=== PATIENT | male | born 1990 ===

== ENCOUNTER 2018-08-18 14:10 | Observation (INO) | payer MEDICAID ==
--- NOTE | 2018-08-18 15:15 | ED PDOC ---
Arrival/HPI - General Chief Complaint: GI Problem Time Seen by Provider: 08/18/18 14:12 Historian: Patient, Parent (Mother provided most of the information) - History of Present Illness Narrative History of Present Illness (Text): 08/18/18 14:40 28 M with no significant PMHx presents with cc of vomiting and abdominal pain after drinking alcohol yesterday (6-7 drinks). Pt reports he has vomited about 6 times since 08:00 this morning, with the same dark brown color each time. Patient's mother reports patient had a few drinks last night, although a doctor has previously told him that he is allergic to alcohol. Patient states the vomiting started before the abdominal pain. Patient notes dizziness and dark stool since this morning, with normal consistency. Patient is holding a bucket of vomit, appears to be coffee ground emesis. Pt denies diarrhea or any other complaints. Time/Duration: 4-6 hours (Patient reports vomiting 6 times and abdominal pain since 08:00 this morning ) Symptom Onset: Sudden Symptom Course: Unchanged Activities at Onset: Light Past Medical History - Psychiatric Hx Substance Use: No - Anesthesia Hx Anesthesia: No Hx Anesthesia Reactions: No Hx Malignant Hyperthermia: No Family/Social History Family/Social History: No Known Family HX Smoking Status: Never Smoked Hx Alcohol Use: Yes Frequency of alcohol use: Socially Hx Substance Use: No Allergies/Home Meds Allergies/Adverse Reactions: Allergies No Known Allergies Allergy (Verified 08/18/18 14:38) Review of Systems - Physician Review All systems were reviewed & negative as marked: Yes (All other systems negative except that noted in the HPI.) Physical Exam - Physical Exam Narrative Physical Exam (Text): Gen: VS reviewed, alert, well developed, well nourished, nontoxic, mild distress Eye: EOMI, PERRL Neck: no JVD, supple, no adenopathy CV: regular rate, regular rhythm, no rubs,no murmur, S1, S2 Pulm: no distress, clear to auscultation, no wheeze, no rhonchi, breath sounds equal, no rales Abd: soft, nontender, no guarding, no rebound, no rigidity Ext: no edema Skin: good color, no rash, no cyanosis Psych: responds appropriately to questions, normal affect Neuro: oriented x3, CN2-12 intact grossly, motor intact, sensation intact Medical Decision Making ED Course and Treatment: 08/18/18 14:40 Impression: 28 presents with cc of vomiting and abdominal pain after drinking alcohol yesterday (6-7 drinks). Differential Diagnosis included but are not limited to: Plan: -- Labs -- CBC (with differential) -- X-Ray of chest -- Protonix 40mg in 100 ml IVPB 20 mls/hr -- Protonix Inj 80mg IVP -- IV fluids -- Zofran Inj 4mg IVP -- Reassess and disposition Progress Notes: 08/18/18 16:16 hemoccult faintly positive with positive control: [id number] 08/18/18 16:39 admit refused by dental practitioner dr. louise 08/18/18 16:[address] brantley to hospitalist service. patient to be admitted for coffee ground emesis. hemoccult was noted to be weakly positive. recommend GI consult. - RAD Interpretation Narrative RAD Interpretations (Text): X-Ray of chest reviewed by radiologist, shows: Dictator : Jodee Costello MD Report Date : 08/18/2018 16:39:25 FINDINGS: LUNGS: No focal consolidation. Please note that chest x-ray has limited sensitivity for the detection of pulmonary masses. PLEURA: No significant pleural effusion identified. No definite pneumothorax . CARDIOVASCULAR: Heart size appears within normal limits. No significant atherosclerotic calcification present. OSSEOUS STRUCTURES: No acute osseous abnormality identified. VISUALIZED UPPER ABDOMEN: Elevation of the right hemidiaphragm. OTHER FINDINGS: None. IMPRESSION: No focal consolidation, significant pleural effusion, or definite pneumothorax identified. Radiology Orders: 08/18/18 14:50 CHEST PORTABLE [RAD] Stat Aluminizer: Radiologist - Medication Orders Current Medication Orders: Pantoprazole Sodium (Protonix 40mg Ivpb) 40 mg in 100 mls @ 20 mls/hr IVPB .Q5H MARISOL Sodium Chloride (Sodium Chloride 0.9%) 1,000 mls @ 100 mls/hr IV .Q10H MARISOL Discontinued Medications Ondansetron HCl (Zofran Inj) 4 mg IVP STAT STA Stop: 08/18/18 14:51 Pantoprazole Sodium (Protonix Inj) 80 mg IVP STAT STA Stop: 08/18/18 14:52 - Scribe Statement The provider has reviewed the documentation as recorded by the Scribe Vandana Sampsonjh All medical record entries made by the Shila were at my direction and personally dictated by me. I have reviewed the chart and agree that the record accurately reflects my personal performance of the history, physical exam, medical decision making, and the department course for this patient. I have also personally directed, reviewed, and agree with the discharge instructions and disposition. Disposition/Present on Arrival - Present on Arrival Any Indicators Present on Arrival: No History of DVT/PE: No History of Uncontrolled Diabetes: No Urinary Catheter: No History of Decub. Ulcer: No History Surgical Site Infection Following: None - Disposition Have Diagnosis and Disposition been Completed?: Yes Diagnosis: Gastritis Disposition: HOSPITALIZED Disposition Time: 16:45 Patient Plan: Admission Patient Problems: Current Active Problems Problem Status Onset Gastritis Acute Condition: STABLE
[2018-08-18] MEDS: Sodium Chloride 0.9% 1,000 ML IV SCH (15:20)
[2018-08-18] MEDS: Pantoprazole 40mg/100mL NS 40 MG/100 ML BAG IVPB SCH ×2 (15:21→20:50)
[2018-08-18 15:47] LABS: BLOOD UREA NITROGEN 12 mg/dL (7-21); CALCIUM 9.2 mg/dL (8.4-10.5); GFR NON-AFRICAN AMERICAN > 60; LIPASE 47 U/L (23-300)
[2018-08-18 15:55] LABS: ALB/GLOB RATIO 1.4 (1.1-1.8); ALBUMIN 5.2 g/dL (3.0-4.8); ALT/SGPT 65 U/L (7-56); AST/SGOT 50 U/L (17-59)
[2018-08-18 16:12] LABS: HEMOGLOBIN 16.8 g/dL (14.0-18.0); MEAN CELL VOLUME 88.8 fl (80.0-105.0); MEAN CORPUSCULAR HEMOGLOBIN 30.4 pg (25.0-35.0); MEAN CORPUSCULAR HGB CONC 34.3 g/dl (31.0-37.0); MEAN PLATELET VOLUME 9.7 fl (7.0-11.0); RBC 5.52 10^6/uL (3.5-6.1); RED CELL DISTRIBUTION WIDTH 13.1 % (11.5-14.5); WHITE BLOOD COUNT 12.8 10^3/uL (4.5-11.0)
--- NOTE | 2018-08-18 16:42 | RAD ---
HISTORY: free air, upright film COMPARISON: No prior. TECHNIQUE: Chest, one view. FINDINGS: LUNGS: No focal consolidation. Please note that chest x-ray has limited sensitivity for the detection of pulmonary masses. PLEURA: No significant pleural effusion identified. No definite pneumothorax . CARDIOVASCULAR: Heart size appears within normal limits. No significant atherosclerotic calcification present. OSSEOUS STRUCTURES: No acute osseous abnormality identified. VISUALIZED UPPER ABDOMEN: Elevation of the right hemidiaphragm. OTHER FINDINGS: None. IMPRESSION: No focal consolidation, significant pleural effusion, or definite pneumothorax identified.
--- NOTE | 2018-08-18 17:27 | CP.PCM.HP ---
<Carlos Alberto Ritchie - Last Filed: 08/18/18 18:43> History of Present Illness - History of Present Illness History of Present Illness: PGY-1 H&P for Dr. Boyd Patient is a 28 year old M with no significant past medical history presenting to the ED for vomiting and generalized abdominal pain after drinking Jimenez sandovaley last night. As per patient, he had ~6 shots of Jimenez Cornelius yesterday evening around 8-9pm and woke up this morning at 5AM feeling nauseous and vomiting. He endorses 6 total episodes of vomiting since this morning with 2 episodes of "dark brown" vomiting. Patient's mother at bedside states this has happened 2 other instances in the past, all of which occur after drinking. He has gone to Urgent Care in the past but came to the ED this time for insurance reasons. No fevers/chills, headaches, dizziness, changes in vision, chest pain, palpitations, sob, cough, diarrhea/constipation, dysuria, hx of bleeding or easy bruising. Of note, in the ED, hemoccult was "faintly positive with positive control". PMHx: denies PSHx: denies Allergies: NKDA Home Medications: multivitamin Social Hx: states he drinks socially, 1-2x/week, denies drinking daily. Denies tobacco or illicit drug use FHx: HTN (mom, dad) Present on Admission - Present on Admission Any Indicators Present on Admission: No Past Patient History - Past Social History Smoking Status: Never Smoked - PSYCHIATRIC Hx Substance Use: No - SURGICAL HISTORY Hx Surgeries: No - ANESTHESIA Hx Anesthesia: No Hx Anesthesia Reactions: No Hx Malignant Hyperthermia: No Meds Allergies/Adverse Reactions: Allergies Allergy/AdvReac Type Severity Reaction Status Date / Time No Known Allergies Allergy Verified 08/18/18 14:38 Physical Exam - Constitutional Appears: Non-toxic, No Acute Distress - Head Exam Head Exam: ATRAUMATIC, NORMAL INSPECTION, NORMOCEPHALIC - Eye Exam Eye Exam: EOMI, Normal appearance Pupil Exam: NORMAL ACCOMODATION, PERRL - ENT Exam ENT Exam: Mucous Membranes Moist, Normal Exam - Neck Exam Neck exam: Positive for: Full Rom, Normal Inspection - Respiratory Exam Respiratory Exam: Clear to Auscultation Bilateral, NORMAL BREATHING PATTERN. absent: Accessory Muscle Use, Rales, Rhonchi, Wheezes, Respiratory Distress, Stridor - Cardiovascular Exam Cardiovascular Exam: REGULAR RHYTHM, +S1, +S2 - GI/Abdominal Exam GI & Abdominal Exam: Normal Bowel Sounds, Soft. absent: Distended, Firm, Guarding, Hernia, Rebound, Rigid, Tenderness - Extremities Exam Extremities exam: Positive for: full ROM, normal capillary refill, normal inspection, pedal pulses present. Negative for: calf tenderness, joint swelling, pedal edema - Back Exam Back exam: NORMAL INSPECTION - Neurological Exam Neurological exam: Alert, CN II-XII Intact, Oriented x3 - Psychiatric Exam Psychiatric exam: Normal Affect, Normal Mood - Skin Skin Exam: Dry, Intact, Normal Color, Warm Results - Vital Signs Recent Vital Signs: Last Vital Signs Temp Pulse Resp BP Pulse Ox 98 08/18/18 14:50 - Labs Result Diagrams: 08/18/18 15:05 08/18/18 15:05 Labs: Laboratory Results - last 24 hr 08/18/18 08/18/18 08/18/18 15:05 15:05 15:05 WBC 12.8 H RBC 5.52 Hgb 16.8 Hct 49.0 MCV 88.8 MCH 30.4 MCHC 34.3 RDW 13.1 Plt Count 323 MPV 9.7 Sodium 145 Potassium 4.4 Chloride 105 Carbon Dioxide 27 Anion Gap 17 BUN 12 Creatinine 0.7 L Est GFR ( Amer) > 60 Est GFR (Non-Af Amer) > 60 Random Glucose 130 H Calcium 9.2 Total Bilirubin 1.3 AST 50 ALT 65 H Alkaline Phosphatase 57 Total Protein 8.9 H Albumin 5.2 H Globulin 3.7 Albumin/Globulin Ratio 1.4 Lipase 47 Alcohol, Quantitative < 10 Blood Type Confirm BBK History Checked 08/18/18 08/18/18 15:45 16:05 WBC RBC Hgb Hct MCV MCH MCHC RDW Plt Count MPV Sodium Potassium Chloride Carbon Dioxide Anion Gap BUN Creatinine Est GFR ( Amer) Est GFR (Non-Af Amer) Random Glucose Calcium Total Bilirubin AST ALT Alkaline Phosphatase Total Protein Albumin Globulin Albumin/Globulin Ratio Lipase Alcohol, Quantitative Blood Type Confirm A POSITIVE BBK History Checked No verified bt Assessment & Plan - Assessment and Plan (Free Text) Assessment: 28 yo M with no PMHx presenting with multiple episodes of dark brown vomiting, generalized abdominal pain s/p alcohol abuse Plan: ?Coffee ground emesis, generalized abdominal pain -Vomiting appears more dark brown than coffee ground, likely 2/2 alcohol -H/H stable: 16.8/49, continue to monitor -alcohol serum negative -in the ED, hemoccult was "faintly positive with positive control" -GI consult on board -clear liquid diet -protonix -zofran -IVF Hx binge drinking -multiple episodes of similar symptoms s/p binge drinking -pt denies daily alcohol abuse -alcohol serum negative -alcohol cessation counseling PPx, Diet, Disposition -GI: protonix -Diet: clear liquid Case discussed with Dr. Oliver Ritchie DO, PGY-1 <Mayelin Boyd R - Last Filed: 08/19/18 15:05> Results - Vital Signs Recent Vital Signs: Last Vital Signs Temp 97.7 F 08/19/18 08:20 Pulse 56 L 08/19/18 10:00 Resp 20 08/19/18 08:20 BP 113/64 08/19/18 08:20 Pulse Ox 96 08/19/18 08:20 - Labs Result Diagrams: 08/19/18 12:30 08/19/18 05:30 Labs: Laboratory Results - last 24 hr 08/18/18 08/18/18 08/18/18 15:05 15:05 15:05 WBC 12.8 H RBC 5.52 Hgb 16.8 Hct 49.0 MCV 88.8 MCH 30.4 MCHC 34.3 RDW 13.1 Plt Count 323 MPV 9.7 Gran % Lymph % (Auto) [place] % (Auto) Eos % (Auto) Baso % (Auto) Gran # Lymph # (Auto) [place] # (Auto) Eos # (Auto) Baso # (Auto) Sodium 145 Potassium 4.4 Chloride 105 Carbon Dioxide 27 Anion Gap 17 BUN 12 Creatinine 0.7 L Est GFR ( Amer) > 60 Est GFR (Non-Af Amer) > 60 Random Glucose 130 H Calcium 9.2 Phosphorus 4.2 Magnesium 2.0 Total Bilirubin 1.3 AST 50 ALT 65 H Alkaline Phosphatase 57 Total Protein 8.9 H Albumin 5.2 H Globulin 3.7 Albumin/Globulin Ratio 1.4 Lipase 47 Urine Opiates Screen Urine Methadone Screen Ur Barbiturates Screen Ur Phencyclidine Scrn Ur Amphetamines Screen U Benzodiazepines Scrn U Oth Cocaine Metabols U Cannabinoids Screen Alcohol, Quantitative < 10 Blood Type Blood Type Confirm Antibody Screen BBK History Checked 08/18/18 08/18/18 08/18/18 15:45 16:05 18:00 WBC RBC Hgb Hct MCV MCH MCHC RDW Plt Count MPV Gran % Lymph % (Auto) [place] % (Auto) Eos % (Auto) Baso % (Auto) Gran # Lymph # (Auto) [place] # (Auto) Eos # (Auto) Baso # (Auto) Sodium Potassium Chloride Carbon Dioxide Anion Gap BUN Creatinine Est GFR ( Amer) Est GFR (Non-Af Amer) Random Glucose Calcium Phosphorus Magnesium Total Bilirubin AST ALT Alkaline Phosphatase Total Protein Albumin Globulin Albumin/Globulin Ratio Lipase Urine Opiates Screen Negative Urine Methadone Screen Negative Ur Barbiturates Screen Negative Ur Phencyclidine Scrn Negative Ur Amphetamines Screen Negative U Benzodiazepines Scrn Negative U Oth Cocaine Metabols Negative U Cannabinoids Screen Negative Alcohol, Quantitative Blood Type A POSITIVE Blood Type Confirm A POSITIVE Antibody Screen Negative BBK History Checked No verified bt 08/19/18 08/19/18 08/19/18 05:30 05:30 12:30 WBC 11.4 H 8.6 D RBC 4.56 4.51 Hgb 13.4 L D 13.2 L Hct 41.3 L 40.8 L MCV 90.6 90.5 MCH 29.4 29.3 MCHC 32.4 32.4 RDW 13.7 13.6 Plt Count 285 271 MPV 9.5 9.2 Gran % 62.5 61.1 Lymph % (Auto) 25.5 28.9 [place] % (Auto) 10.9 H 8.4 H Eos % (Auto) 0.5 L 0.7 L Baso % (Auto) 0.6 0.9 Gran # 7.14 H 5.27 Lymph # (Auto) 2.9 2.5 [place] # (Auto) 1.3 H 0.7 H Eos # (Auto) 0.1 0.1 Baso # (Auto) 0.07 0.08 Sodium 144 Potassium 3.8 Chloride 109 H Carbon Dioxide 29 Anion Gap 10 BUN 15 Creatinine 1.0 Est GFR ( Amer) > 60 Est GFR (Non-Af Amer) > 60 Random Glucose 96 Calcium 8.3 L Phosphorus Magnesium Total Bilirubin 1.9 H AST 26 ALT 51 Alkaline Phosphatase 46 Total Protein 6.4 Albumin 3.7 Globulin 2.7 Albumin/Globulin Ratio 1.4 Lipase Urine Opiates Screen Urine Methadone Screen Ur Barbiturates Screen Ur Phencyclidine Scrn Ur Amphetamines Screen U Benzodiazepines Scrn U Oth Cocaine Metabols U Cannabinoids Screen Alcohol, Quantitative Blood Type Blood Type Confirm Antibody Screen BBK History Checked Attending/Attestation - Attestation I have personally seen and examined this patient.: Yes I have fully participated in the care of the patient.: Yes I have reviewed all pertinent clinical information: Yes Notes (Text): Patient seen and examined by me with resident at 4:45PM on 08/18/18. Case including HPI, physical exam, and assessment and plan discussed with resident. Agree with above with following additions/corrections. Patient is a 28 year old male with no significant past medical history that presented to the emergency room with nausea and vomiting. Patient states that he he had rotisserie chicken last night. He also had 6 shots of jimenez chano's liquor. He states he went to sleep and woke at 5AM with nausea and vomiting. He states he threw up approximately six times. He states that for the most part, his vomitus was clear. However, he had two episodes of dark brown emesis that looked like coffee ground emesis. Patient states he is only having abdominal pain when area is pushed on. Pain is in epigastric regions and feels like a "pressure." Patient denies any diarrhea or constipation. Denies any blood in his stool. Patient states that he did have some dizziness when he was throwing up. Patient states that nausea has now resolved. No chest pain or shortness of breath. No fevers or chills. No headaches or lightheadedness. No neck pain or back pain. No dysuria. Patient does not bleed or bruise easily. 12 point review of systems reviewed by me. Please see above HPI, all other systems negative. Past medical history: Reviewed and patient denies any history. Past surgical history: Reviewed and patient denies any history. Allergies: No known drug allergies. Medications at home: [id number] multivitamin Social history: Patient drinks approximately 2 times a week. He drinks 4-6 shots of liquor. Denies any tobacco use or illicit drug use. Family history: Mother is alive and has hypertension. Father is alive and has hypertension and lumbago Physical exam: General: Awake and alert lying in bed in no acute distress. HEENT: Normocephalic, atraumatic. Extraocular muscles intact, pupils equal and reactive, no scleral icterus. Oropharynx is pink and moist. Neck is supple. Cardiovascular: Normal rhythm. Normal S1 and S2. No murmurs, rubs, or gallops appreciated Pulmonary: Normal respiratory effort. No rhonchi, rales, or wheezing appreciated. Gastrointestinal: Soft, nondistended. Mild epigastric tenderness with deep palpation. Positive bowel sounds all 4 quadrants. No guarding. Musculoskeletal: Moves all extremities. No calf tenderness. No edema appreciated . Central nervous system: AAOx3, CN 2-12 grossly intact. 5/5 muscle strength all extremities. Dermatologic: Skin warm and dry. Assessment and plan: Patient is a 28 year old male with no significant past medical history that presented to the emergency room with nausea and vomiting. 1. Coffee-ground emesis. Per ED Hemoccult was positive. Likely secondary to alcohol abuse. Coffee-ground emesis resolved. H&H is within normal limits. Continue to monitor CBC. GI consulted, follow-up recommendations. Placed on IV fluids and clear liquid diet. Patient counseled at length on alcohol cessation. Continue protonix. 2. Alcohol abuse. Patient binge drinks. ETOH level <10. Denies any withdrawal symptoms in past. Patient counseled at length on cessation. 3. Epigastric pain. Likely secondary to vomiting and binge drinking. Improved. GI consulted, follow up recommendations. Continue protonix. Case was discussed in detail with the patient and patient's mother at bedside with patient's permission regarding current diagnosis and treatment plan. All questions answered.
[2018-08-18 20:35] VITALS: RESP 20
[2018-08-18 20:37] VITALS: BMI 18.6
[2018-08-18 21:54] LABS: BARBITURATES, UR NEGATIVE (NEGATIVE); BENZODIAZEPINES, UR NEGATIVE (NEGATIVE); OPIATES, UR NEGATIVE (NEGATIVE); PHENCYCLIDINE, UR NEGATIVE (NEGATIVE)
[2018-08-19] MEDS: Sodium Chloride 0.9% 1,000 ML IV SCH ×2 (01:00→10:58)
[2018-08-19] MEDS: Pantoprazole 40mg/100mL NS 40 MG/100 ML BAG IVPB SCH (01:42)
[2018-08-19 07:12] LABS: BASO # 0.07 K/mm3 (0.0-2.0); BASO % 0.6 % (0.0-3.0); EOS # 0.1 (0.0-0.7); EOS % 0.5 % (1.5-5.0); GRAN # 7.14 (1.4-6.5); GRAN % 62.5 % (50.0-68.0); LYMPH # 2.9 (1.2-3.4); LYMPH % 25.5 % (22.0-35.0); MEAN CELL VOLUME 90.6 fl (80.0-105.0); MEAN CORPUSCULAR HEMOGLOBIN 29.4 pg (25.0-35.0); MEAN CORPUSCULAR HGB CONC 32.4 g/dl (31.0-37.0); MEAN PLATELET VOLUME 9.5 fl (7.0-11.0); MONO # 1.3 (0.1-0.6); MONO % 10.9 % (1.0-6.0); RBC 4.56 10^6/uL (3.5-6.1); RED CELL DISTRIBUTION WIDTH 13.7 % (11.5-14.5); WHITE BLOOD COUNT 11.4 10^3/uL (4.5-11.0)
[2018-08-19 07:15] LABS: HEMOGLOBIN 13.4 g/dL (14.0-18.0)
[2018-08-19 07:28] LABS: ALB/GLOB RATIO 1.4 (1.1-1.8); ALBUMIN 3.7 g/dL (3.0-4.8); ALT/SGPT 51 U/L (7-56); AST/SGOT 26 U/L (17-59); BLOOD UREA NITROGEN 15 mg/dL (7-21); CALCIUM 8.3 mg/dL (8.4-10.5); GFR NON-AFRICAN AMERICAN > 60
[2018-08-19 08:21] VITALS: BP 113/64; TEMP 97.7; O2SAT 96
--- NOTE | 2018-08-19 10:50 | CARD ---
APPROVED REPORT Date of service: 08/18/2018 EKG Measurement Heart [id number] <Conclusion> Normal sinus rhythm Normal Electrocardiogram
[2018-08-19 13:18] LABS: BASO # 0.08 K/mm3 (0.0-2.0); BASO % 0.9 % (0.0-3.0); EOS # 0.1 (0.0-0.7); EOS % 0.7 % (1.5-5.0); GRAN # 5.27 (1.4-6.5); GRAN % 61.1 % (50.0-68.0); HEMOGLOBIN 13.2 g/dL (14.0-18.0); LYMPH # 2.5 (1.2-3.4); LYMPH % 28.9 % (22.0-35.0); MEAN CELL VOLUME 90.5 fl (80.0-105.0); MEAN CORPUSCULAR HEMOGLOBIN 29.3 pg (25.0-35.0); MEAN CORPUSCULAR HGB CONC 32.4 g/dl (31.0-37.0); MEAN PLATELET VOLUME 9.2 fl (7.0-11.0); MONO # 0.7 (0.1-0.6); MONO % 8.4 % (1.0-6.0); RBC 4.51 10^6/uL (3.5-6.1); RED CELL DISTRIBUTION WIDTH 13.6 % (11.5-14.5); WHITE BLOOD COUNT 8.6 10^3/uL (4.5-11.0)
--- NOTE | 2018-08-19 13:36 | CON ---
DATE: 08/19/2018 GASTROENTEROLOGY CONSULTATION REQUESTING PROVIDER: Dr. Boyd. REASON FOR CONSULTATION: I have been asked to see this 28-year-old male, who went on an alcoholic binge two nights ago drinking six shots of Jimenez Neris and the following morning developed nausea and vomiting as well as two episodes of coffee-ground emesis. He had a similar episode approximately 1 month ago after a night of binge drinking. He currently denies any abdominal pain, nausea, vomiting, hematemesis, or melena. His CBC has remained stable. Again, he currently denies any abdominal pain, nausea, vomiting or melena. PAST MEDICAL HISTORY: Unremarkable. SOCIAL HISTORY: He consumes alcohol on a regular basis. He occasionally has binge drinking on weekends. He denies cigarette smoking. FAMILY HISTORY: Notable for hypertension. REVIEW OF SYSTEMS: Fourteen-point review of systems is notable for nausea, vomiting, and coffee-ground emesis. HOME MEDICATIONS: None. PHYSICAL EXAMINATION: GENERAL: Young male, lying in bed, in no acute distress. VITAL SIGNS: Revealed a temperature of 97.7, blood pressure 113/64, heart rate of 72. HEENT: Revealed sclerae to be white. Conjunctivae pink. NECK: Supple. CHEST: Revealed lungs to be clear. CARDIOVASCULAR: Heart exam reveals regular rate and rhythm. ABDOMEN: Soft, nontender. No mass. EXTREMITIES: Show no edema. LABORATORY DATA: Revealed a white blood cell count of 11.4, hemoglobin 13.4. Chemistries reveal normal electrolytes this morning. Chloride is 109. IMPRESSION: Probable veisalgia secondary to alcohol binge. The patient may also have alcohol-induced gastritis with coffee-ground emesis. His symptoms have resolved. RECOMMENDATIONS: 1. Advance diet to regular diet. 2. The patient has been instructed to avoid binge drinking and then that these episodes of nausea and vomiting after drinking will recur. No GI workup planned at this time. Artem Lu MD
--- NOTE | 2018-08-19 14:22 | CP.PCM.DIS ---
Provider - Provider Date of Admission: 08/18/18 17:59 Attending physician: Mayelin Boyd DO Consults: DAFNE Lu Time Spent in preparation of Discharge (in minutes): 35 Diagnosis - Discharge Diagnosis (1) ETOH abuse Status: Acute Hospital Course - Lab Results Lab Results: Most Recent Lab Values WBC 8.6 10^3/uL (4.5-11.0) D 08/19/18 12:30 RBC 4.51 10^6/uL (3.5-6.1) 08/19/18 12:30 Hgb 13.2 g/dL (14.0-18.0) L 08/19/18 12:30 Hct 40.8 % (42.0-52.0) L 08/19/18 12:30 MCV 90.5 fl (80.0-105.0) 08/19/18 12:30 MCH 29.3 pg (25.0-35.0) 08/19/18 12:30 MCHC 32.4 g/dl (31.0-37.0) 08/19/18 12:30 RDW 13.6 % (11.5-14.5) 08/19/18 12:30 Plt Count 271 10^3/uL (120.0-450.0) 08/19/18 12:30 MPV 9.2 fl (7.0-11.0) 08/19/18 12:30 Gran % 61.1 % (50.0-68.0) 08/19/18 12:30 Lymph % (Auto) 28.9 % (22.0-35.0) 08/19/18 12:30 Foster % (Auto) 8.4 % (1.0-6.0) H 08/19/18 12:30 Eos % (Auto) 0.7 % (1.5-5.0) L 08/19/18 12:30 Baso % (Auto) 0.9 % (0.0-3.0) 08/19/18 12:30 Gran # 5.27 (1.4-6.5) 08/19/18 12:30 Lymph # (Auto) 2.5 (1.2-3.4) 08/19/18 12:30 Foster # (Auto) 0.7 (0.1-0.6) H 08/19/18 12:30 Eos # (Auto) 0.1 (0.0-0.7) 08/19/18 12:30 Baso # (Auto) 0.08 K/mm3 (0.0-2.0) 08/19/18 12:30 Sodium 144 mmol/L (132-148) 08/19/18 05:30 Potassium 3.8 mmol/L (3.6-5.0) 08/19/18 05:30 Chloride 109 mmol/L (98-107) H 08/19/18 05:30 Carbon Dioxide 29 mmol/L (21-33) 08/19/18 05:30 Anion Gap 10 (10-20) 08/19/18 05:30 BUN 15 mg/dL (7-21) 08/19/18 05:30 Creatinine 1.0 mg/dl (0.8-1.5) 08/19/18 05:30 Est GFR ( Amer) > 60 08/19/18 05:30 Est GFR (Non-Af Amer) > 60 08/19/18 05:30 Random Glucose 96 mg/dL (70-110) 08/19/18 05:30 Calcium 8.3 mg/dL (8.4-10.5) L 08/19/18 05:30 Phosphorus 4.2 mg/dL (2.5-4.5) 08/18/18 15:05 Magnesium 2.0 mg/dL (1.7-2.2) 08/18/18 15:05 Total Bilirubin 1.9 mg/dL (0.2-1.3) H 08/19/18 05:30 AST 26 U/L (17-59) 08/19/18 05:30 ALT 51 U/L (7-56) 08/19/18 05:30 Alkaline Phosphatase 46 U/L (38-126) 08/19/18 05:30 Total Protein 6.4 g/dL (5.8-8.3) 08/19/18 05:30 Albumin 3.7 g/dL (3.0-4.8) 08/19/18 05:30 Globulin 2.7 gm/dL 08/19/18 05:30 Albumin/Globulin Ratio 1.4 (1.1-1.8) 11/19/18 05:30 Lipase 47 U/L (23-300) 08/18/18 15:05 Urine Opiates Screen Negative (NEGATIVE) 08/18/18 18:00 Urine Methadone Screen Negative (NEGATIVE) 08/18/18 18:00 Ur Barbiturates Screen Negative (NEGATIVE) 08/18/18 18:00 Ur Phencyclidine Scrn Negative (NEGATIVE) 08/18/18 18:00 Ur Amphetamines Screen Negative (NEGATIVE) 08/18/18 18:00 U Benzodiazepines Scrn Negative (NEGATIVE) 08/18/18 18:00 U Oth Cocaine Metabols Negative (NEGATIVE) 08/18/18 18:00 U Cannabinoids Screen Negative (NEGATIVE) 08/18/18 18:00 Alcohol, Quantitative < 10 mg/dL (0-10) 08/18/18 15:05 Blood Type A POSITIVE 08/18/18 15:45 Blood Type Confirm A POSITIVE 08/18/18 16:05 Antibody Screen Negative 08/18/18 15:45 BBK History Checked No verified bt 08/18/18 15:45 - Hospital Course Hospital Course: Tay Murray, PGY-1 Discharge Summary for Hospitalist Service Upon admission: Patient is an 28 year old male with no significant PMH who presented to the ED complaining of vomiting and generalized abdominal pain after drinking whiskey sunday night. As per patient, he had 6 shots of whiskey sunday evening around 8-9 pm and woke up around 5am feeling naseous and vomiting. Patient states that he had 6 total episodes of vomiting since this morning; 2 of which he described as "dark brown." Patient's mother was at bedside and she stated that the patient has had 2 other similiar instances in the past, both occuring after drinking. In the past he has gone to Urgent Care but came to the ED this time due to insurance reason. Patient denied fevers, chills, headaches, dizziness, changes in vision, chest pain, palpitations, sob, cough, jeanne rrhea/constipation, dysuria, hx of bleeding or easy bruising. Of note , within the ED, a hemoccult test was done and was found to be "faintly positive with positive control." Hospital Course: 28 year old male admitted for vomiting and abdominal pain. Vomit was noted to be of coffee ground emesis and hemoccult was noted to be "faintly positive" in the ED. Patient was started on protonix, zofran, IVF and clear liquid diet which he tolerated well. Gastro was consulted who recommended to advance diet to regular diet and counseled patient on avoiding binge drinking. Gastro (Dr. Lu) did not recommend any further GI workup at this time. Patient tolerated regular diet, stable for discharge. Repeat CBC performed showed no further sign of anemia or drop of Hgb. Discharge plan: Patient is stable for discharge to home as per Dr. Choudhury. Patient was counseled to return to the emergency department if symptoms return or worsen. Patient is to follow up in the [facility] on 09/05. Counseled patient on the side effects of continuing to consume ETOH. Patient understands, is hemodynamically stable, and agrees with discharge plan. Disclaimer: Written above is a synopsis of patients current hospital admission. For full admission refer to EMR. Patient seen, case reviewed and plan approved by Dr. Choudhury. Discharge Exam - Additional Findings Additional findings: - Constitutional Appears: Non-toxic, No Acute Distress - Head Exam Head Exam: ATRAUMATIC, NORMAL INSPECTION, NORMOCEPHALIC - Eye Exam Eye Exam: EOMI, Normal appearance Pupil Exam: NORMAL ACCOMODATION, PERRL - ENT Exam ENT Exam: Mucous Membranes Moist, Normal Exam - Neck Exam Neck exam: Positive for: Full Rom, Normal Inspection - Respiratory Exam Respiratory Exam: Clear to Auscultation Bilateral, NORMAL BREATHING PATTERN. absent: Accessory Muscle Use, Rales, Rhonchi, Wheezes, Respiratory Distress, Stridor - Cardiovascular Exam Cardiovascular Exam: REGULAR RHYTHM, +S1, +S2 - GI/Abdominal Exam GI & Abdominal Exam: Normal Bowel Sounds, Soft. absent: Distended, Firm, Guarding, Hernia, Rebound, Rigid, Tenderness - Extremities Exam Extremities exam: Positive for: full ROM, normal capillary refill, normal inspection, pedal pulses present. Negative for: calf tenderness, joint swelling, pedal edema - Back Exam Back exam: NORMAL INSPECTION - Neurological Exam Neurological exam: Alert, CN II-XII Intact, Oriented x3 - Psychiatric Exam Psychiatric exam: Normal Affect, Normal Mood - Skin Skin Exam: Dry, Intact, Normal Color, Warm Discharge Plan - Follow Up Plan Condition: STABLE Disposition: HOME/ ROUTINE Patient education suggested?: Yes Instructions: Gastritis (DC) Additional Instructions: Please stop all alcoholic binge drinking. Please limit ETOH at all times, as you have had multiple hospital visits for similar complaints. Please follow up with your Primary Care Physician or follow up with Dr. Gore in the [facility] at 4 pm on 09/05. Please bring your insurance card and photo ID and please arrive by 3:30 pm. Please be aware that you may be billed as out of network with your current insurance at [facility], so please find a primary physician to follow up with within 2 weeks if that poses an issue. Should symptoms reoccur or worsen, please visit nearest emergency department. Referrals: Artem Lu MD [Staff Provider] - Helene Gore MD [Medical Doctor] -
[2018-08-20 00:42] VITALS: PULSE 70
== END 2018-08-19 16:21 | disposition home or self-care (01) ==
LOC: ED 14:10 → ERH 17:59 → INTOOBSV 17:59 → ERH 19:44 → 3RSO 20:11
PROVIDERS: ADMIT Hospitalist; ATTEND Hospitalist
DX: K29.20 Alcoholic gastritis without bleeding (principal); F10.10 Alcohol abuse, uncomplicated
CPT/HCPCS: 36415; 71045; 80053; 80320; 80324; 80345; 80346; 80349; 80353; 80358; 80361; 83690; 83735; 83992; 84100; 85025; 85027; 86850; 86900; 93005; 96365; 96366; 96375; 96376; 99285; C9113; G0378; J2405; J7030